=== PATIENT | female | born 1990 | race Hispanic/Latino ===

== ENCOUNTER 2018-02-13 13:27 | Emergency (ER) | payer MEDICAID, OTHER | END 2018-02-13 13:49 | disposition home or self-care (01) | LOC: EDH 13:27 | DX: Z02.89 Encounter for other administrative examinations (principal); F43.10 Post-traumatic stress disorder, unspecified; F31.9 Bipolar disorder, unspecified; Z87.891 Personal history of nicotine dependence ==